=== PATIENT | male | born 1995 | race Two or more races ===

== ENCOUNTER 2022-02-05 08:51 | Outpatient (CLI) | payer OTHER | END 2022-02-05 09:01 | disposition home or self-care (01) | LOC: PPH VACUNA 08:51 | PROVIDERS: ATTEND Emergency Medicine Pediatric Emergency Medicine | DX: Z23 Encounter for immunization (principal) ==

== ENCOUNTER 2022-04-23 07:10 | Outpatient (CLI) | payer OTHER | END 2022-04-23 07:20 | disposition home or self-care (01) | LOC: LAB 07:10 | DX: D64.9 Anemia, unspecified (principal); I65.9 Occlusion and stenosis of unspecified precerebral artery; E55.9 Vitamin D deficiency, unspecified; E03.9 Hypothyroidism, unspecified ==

== ENCOUNTER 2022-07-14 15:42 | Outpatient (CLI) | payer OTHER | END 2022-07-14 15:46 | disposition home or self-care (01) | LOC: RAD 15:42 | DX: J34.89 Other specified disorders of nose and nasal sinuses (principal) ==